=== PATIENT | female | born 1995 | race Caucasian/White ===

== ENCOUNTER 2017-03-16 01:11 | Inpatient (IN) | payer MEDICAID ==
[~2017-03-16] VITALS: Ht 162.6 cm; Wt 76.7 kg
[2017-03-16] MEDS ORDERED: DEXT 5%/LR + PITOCIN 20UNITS/L 1,000 ML IV SCH ×2 (01:48→08:00)
[2017-03-16] MEDS ORDERED: NALOXONE HCL 0.4 MG/ML 1ML VIAL IM PRN (02:00)
[2017-03-16] MEDS ORDERED: METHYLERGONOVINE MALEATE 0.2 MG/ML IM PRN (02:00)
[2017-03-16] MEDS ORDERED: CARBOPROST TROMETHAMINE 250 MCG/ML AMPUL IM PRN (02:00)
[2017-03-16] MEDS: BUTORPHANOL TARTRATE 2 MG/ML VIAL IV PRN ×2 (02:11→02:15)
[2017-03-16 02:12] LABS: BASOPHILS % 0.5 % (0.0-2.0); EOSINOPHILS % 0.6 % (0.0-5.0); HEMATOCRIT. 26.8 % (36.0-48.0); HEMOGLOBIN. 8.9 g/dL (12.0-16.0); LYMPHOCYTES % 21.7 % (20.0-50.0); MEAN CORPUSCULAR VOLUME 75.4 fL (81.0-99.0); MEAN PLATELET VOLUME 7.6 fl (7.4-10.4); MONOCYTES % 8.8 % (2.0-8.0); NEUTROPHILS % 68.4 % (40.0-76.0); PLATELET 464 x1000/uL (130-400); RED BLOOD CELL COUNT 3.55 mill/uL (4.2-5.4); RED CELL DISTRIBUTION WIDTH 18.9 % (11.6-14.6)
[2017-03-16 02:15] LABS: INR 0.9; PARTIAL THROMBOPLASTIN TIME 24.5 sec (23.4-31.0); PROTHROMBIN TIME 9.8 sec (9.4-11.6)
[2017-03-16] MEDS: LACTATED RINGERS 1,000 ML IV SCH ×2 (02:16→05:51)
[2017-03-16] MEDS: TERBUTALINE SULFATE 1MG/ML VIAL SUBCUT NR ×2 (02:16→05:40)
[2017-03-16] MEDS ORDERED: PREN1TAB78 PO (04:02)
[2017-03-16] MEDS ORDERED: FENTANYL CITRATE/PF 50MCG/ML 2ML VIAL ONE (07:30)
[2017-03-16] MEDS ORDERED: OXYTOCIN 10 UNITS/ML 1ML ONE (07:30)
[2017-03-16] MEDS ORDERED: MORPHINE SULFATE/PF 1MG/ML 10ML AMP ONE (07:30)
[2017-03-16] MEDS ORDERED: GLYCOPYRROLATE 0.2 MG/ML 2ML VIAL ONE (07:31)
[2017-03-16] MEDS ORDERED: EPHEDRINE SULFATE 50MG/ML VIAL ONE (07:31)
[2017-03-16] MEDS ORDERED: ONDANSETRON HCL 4MG/2ML VIAL ONE (07:35)
[2017-03-16] MEDS ORDERED: CEFAZOLIN 2000MG PREMIX 50 ML IV ONE (07:37)
[2017-03-16 07:54] LABS: RUBELLA IGG 2.4 IU/mL (4.99-10)
[2017-03-16 07:55] LABS: HEPATITIS B SURFACE ANTIGEN NEGATIVE
[2017-03-16] MEDS ORDERED: HYDROMORPHONE HCL/PF 2MG/ML CPJ IM PRN (08:00)
[2017-03-16] MEDS ORDERED: RHO(D) IMMUNE GLOBULIN 300 MCG/SYR IM PRN (08:00)
[2017-03-16] MEDS ORDERED: IBUPROFEN 400MG TABLET PO PRN (08:00)
[2017-03-16] MEDS ORDERED: DIPHENHYDRAMINE 50MG/ML VIAL ONE (08:50)
[2017-03-16] MEDS ORDERED: NALOXONE HCL 0.4 MG/ML 1ML VIAL IV PRN (09:15)
[2017-03-16] MEDS ORDERED: BUTORPHANOL TARTRATE 2 MG/ML VIAL IV PRN (09:15)
[2017-03-16] MEDS ORDERED: DIPHENHYDRAMINE 50MG/ML VIAL IV PRN (09:15)
[2017-03-16] MEDS ORDERED: FENTANYL CITRATE/PF 50MCG/ML 2ML VIAL IV PRN (09:15)
[2017-03-16 11:30] VITALS: BP 108/66
[2017-03-16 12:00] VITALS: BP 110/73
[2017-03-16] MEDS ORDERED: METHYLERGONOVINE MALEATE 0.2 MG/ML ONE (12:54)
[2017-03-16 16:00] VITALS: BP 98/52
[2017-03-16 16:36] LABS: CLARITY URINE CLEAR (CLEAR); COLOR URINE YELLOW (YELLOW); GLUCOSE URINE NEGATIVE (NEGATIVE); KETONES URINE NEGATIVE (NEGATIVE); LEUKOCYTE ESTERASE URINE TRACE (NEGATIVE); NITRITE URINE NEGATIVE (NEGATIVE); OCCULT BLOOD URINE 2+ (NEGATIVE); PH URINE 8.5 (4.5-8.0); PROTEIN URINE NEGATIVE (NEGATIVE); SPECIFIC GRAVITY URINE 1.006 (1.005-1.030); UROBILINOGEN URINE 0.2 E.U./dL (0.2-1.0)
[2017-03-16 16:59] LABS: *AMPHETAMINES SCREEN URINE NEGATIVE (NEGATIVE); *BARBITURATES SCREEN URINE NEGATIVE (NEGATIVE); *BENZODIAZEPINES SCREEN URINE NEGATIVE (NEGATIVE); *COCAINE SCREEN URINE NEGATIVE (NEGATIVE); CANNABINOID URINE SCREEN NEGATIVE (NEGATIVE); METHADONE URINE SCREEN NEGATIVE (NEGATIVE); OPIATES URINE SCREEN NEGATIVE (NEGATIVE); PHENCYCLIDINE URINE SCREEN NEGATIVE (NEGATIVE)
[2017-03-16] MEDS: KETOROLAC 30MG/ML VIAL IV PRN (18:37)
[2017-03-16 19:40] VITALS: BP 106/57
[2017-03-16 23:40] VITALS: BP 93/60
[2017-03-17 03:40] VITALS: BP 106/67
[2017-03-17] MEDS: KETOROLAC 30MG/ML VIAL IV PRN ×2 (05:49)
[2017-03-17 07:10] LABS: BASOPHILS % 0.3 % (0.0-2.0); EOSINOPHILS % 0.2 % (0.0-5.0); HEMATOCRIT. 25.9 % (36.0-48.0); HEMOGLOBIN. 8.2 g/dL (12.0-16.0); LYMPHOCYTES % 8.4 % (20.0-50.0); MEAN CORPUSCULAR HEMOGLOBIN 23.9 pg (28.0-32.0); MEAN CORPUSCULAR VOLUME 75.9 fL (81.0-99.0); MEAN PLATELET VOLUME 7.7 fl (7.4-10.4); MONOCYTES % 8.8 % (2.0-8.0); NEUTROPHILS % 82.3 % (40.0-76.0); PLATELET 404 x1000/uL (130-400); RED BLOOD CELL COUNT 3.41 mill/uL (4.2-5.4); RED CELL DISTRIBUTION WIDTH 20.4 % (11.6-14.6)
[2017-03-17 07:38] VITALS: BP 91/68
[2017-03-17] MEDS: IBUPROFEN 800MG TABLET PO PRN ×3 (09:19→21:00)
[2017-03-17 15:01] VITALS: BP 91/53
[2017-03-17 20:00] VITALS: BP 100/64
[2017-03-17] MEDS: BISACODYL 10MG SUPP PR PRN (21:01)
[2017-03-18] VITALS: BP 102/66
[2017-03-18 04:00] VITALS: BP 103/61
[2017-03-18 07:53] VITALS: BP 101/60
[2017-03-18] MEDS: IBUPROFEN 800MG TABLET PO PRN ×2 (08:02→14:36)
[2017-03-18] MEDS: BISACODYL 10MG SUPP PR PRN (14:36)
[2017-03-18 16:14] VITALS: BP 99/56
[2017-03-18 20:00] VITALS: BP 104/61
[2017-03-19] MEDS: ACETAMINOPHEN WITH CODEINE 300/30MG TABLET PO PRN ×2 (01:29→11:41)
[2017-03-19 05:16] VITALS: BP 102/61
[2017-03-19 07:30] VITALS: BP 96/60
[2017-03-19] MEDS: IBUPROFEN 800MG TABLET PO PRN (11:40)
== END 2017-03-19 19:45 | disposition home or self-care (01) | DRG 540 ==
LOC: L&D 01:11 → OBSVTOIN 01:11 → 7EST PP/OB 11:20
PROVIDERS: ADMIT Obstetrics & Gynecology; ATTEND Obstetrics & Gynecology
PROC: 10D00Z1 Extraction of Products of Conception, Low, Open Approach (ICD-10-PCS; principal; 2017-03-16 08:00)
DX: O34.211 Maternal care for low transverse scar from previous cesarean delivery (principal); D64.9 Anemia, unspecified; O99.02 Anemia complicating childbirth; Z37.0 Single live birth; Z3A.39 39 weeks gestation of pregnancy
CPT/HCPCS: 36415; 80305; 81001; 85025; 85610; 85730; 86592; 86703; 86762; 86850; 86900; 87340; 88307; J0171; J0595; J0690; J1200; J1885; J2210; J2274; J2405; J2590; J3010; J3105; J3490; J7120; A4315